=== PATIENT | female | born 1985 | race Caucasian/White ===

== ENCOUNTER → 2017-03-22 | Outpatient (CLI) | payer OTHER ==
[~2017-03-22] MED LIST: GADOBUTROL 10 ML VIAL IVP ONE
== END ==
LOC: FIMAGING 06:54
PROVIDERS: ATTEND Physician Assistant
DX: D35.2 Benign neoplasm of pituitary gland (principal); E22.1 Hyperprolactinemia
CPT/HCPCS: A9585